=== PATIENT | male | born 1960 | race Caucasian/White ===

== ENCOUNTER 2016-03-26 12:46 | Emergency (ER) | payer OTHER ==
[2016-03-26 13:07] VITALS: BP 164/86; PULSE 98; RESP 16; TEMP 98.2; O2SAT 96
--- NOTE | 2016-03-26 14:09 | UCPHY ---
H & P Time Seen by Provider: 03/26/16 14:08 Patient Type: Established HPI/ROS: Chief complaint. Cough HPI. 56-year-old male presents with cough for 4 days. He also has sore throat. Irritated sensation is throat that makes him cough. No fever. No shortness of breath or chest discomfort. Cough is generally nonproductive. No known exposures. ROS Constitutional. no fever/chills, no weakness Eyes. no problems with vision ENT. Sore throat Cardiovascular. no chest pain Respiratory. Cough Abdominal. no abdominal pain, no nausea/vomiting, no diarrhea . no problems urinating MS. no calf pain/swelling, no neck/back pain, no joint pain Skin. no rash Lymph. no swollen glands Neuro. no headache, no dizziness, no difficulty walking or with speech Past Medical/Surgical History: Hypertension, kidney stone, carpal tunnel repair Social History: , nonsmoker, no alcohol Physical Exam: General Appearance: Alert well-developed male mild distress vital signs stable Eyes: Pupils equal and round no pallor or injection. ENT, tympanic membranes are normal. Pharynx injected with no exudate. Mucous membranes are moist Respiratory: There are no retractions, lungs are clear to auscultation. Cardiovascular: Regular rate and rhythm. Gastrointestinal: Abdomen is soft and nontender, no masses, bowel sounds normal. Neurological: Awake and alert, sensory and motor exams grossly normal. Skin: Warm and dry, no rashes. Musculoskeletal: Neck is supple nontender. Extremities symmetrical, full range of motion. Psychiatric: Patient is oriented X 3, there is no agitation. Constitutional: Initial Vital Signs Temperature (C) 36.8 C 03/26/16 13:04 Heart Rate 98 03/26/16 13:04 Respiratory Rate 16 03/26/16 13:04 Blood Pressure 164/86 H 03/26/16 13:04 O2 Sat (%) 96 03/26/16 13:04 O2 Delivery Mode Room Air Allergies/Adverse Reactions: No Known Allergies Allergy (Verified 03/26/16 13:07) Home Medications: Medication Instructions Recorded Metoprolol Succinate 50 mg PO 04/03/10 Benzonatate [Tessalon Pearles (RX)] 200 mg PO TID PRN #14 cap 03/26/16 Medical Decision Making ED Course/Re-evaluation: Patient remains stable He and I discussed treatment plan including criteria for return importance of follow-up and further evaluation. He expresses understanding and agreement Differential Diagnosis: I think this is likely viral syndrome. I considered strep pharyngitis, influenza, bronchitis, pneumonia - Data Points Medications Given: Discontinued Medications Dexamethasone (Decadron) 8 mg PO EDNOW ONE Stop: 03/26/16 14:17 Last Admin: 03/26/16 14:24 Dose: 8 mg Departure - Departure Disposition: Home, Routine, Self-Care Clinical Impression: Upper respiratory infection Qualifiers: URI type: unspecified URI Qualifier Code: (J06.9) Acute upper respiratory infection, unspecified Condition: Good Instructions: Upper Respiratory Infection (ED) Additional Instructions: Drink plenty of fluids and stay hydrated. Tylenol and Advil for achiness or fever. Tessalon Perles for cough. Return for worsening symptoms. Recheck in 2 -3 days if not improving Referrals: TAYLOR FERNANDEZ [Primary Care Provider] - 2-3 days, if not improved Prescriptions: Benzonatate [Tessalon Pearles (RX)] 200 mg PO TID PRN #14 cap PRN Reason: Cough, Moderate - PQRS PQRS Measurement: 134: Depression screening and followup, PRIME MD-PHQ2 (12 years and older) Over the last 2 weeks, how often have you been bothered by any of the following problems? 1. Feeling down, depressed, or hopeless? 2. Little interest or pleasure in doing things? Patient answered no to both 1 and 2 130: Documentation of medications. Reviewed all patient medications, doses, route and frequency. 226: Do you smoke? No.
[2016-03-26] MEDS ORDERED: DEXAMETHASONE 4 MG TAB PO ONE (14:16)
== END 2016-03-26 14:34 | disposition home or self-care (01) ==
LOC: CED 12:46
DX: J06.9 Acute upper respiratory infection, unspecified (principal)
CPT/HCPCS: 99214-PO; G0463-PO

== ENCOUNTER 2016-03-29 15:06 | Emergency (ER) | payer OTHER ==
[2016-03-29 15:36] VITALS: BP 142/84; PULSE 94; RESP 18; TEMP 97.9; O2SAT 94
--- NOTE | 2016-03-29 17:08 | UCPHY ---
H & P Patient Type: Established Smoking Status: Never smoked Time Seen by Provider: 03/29/16 17:05 HPI/ROS: HPI: 56-year-old male presents to urgent care for recheck of URI symptoms. Overall his symptoms have improved. Reports ongoing nasal congestion, nonproductive cough, mild sore throat. Denies fever, chills, dysphagia, shortness of breath, chest pain, nausea or vomiting. No history of asthma or pneumonia. Was evaluated in the urgent care 3 days ago. Reports overall improvement of symptoms however his cough is prevented him from sleeping at night which is why he comes to urgent care for recheck. ROS:10 point review of systems is negative other than as stated in HPI (Tete Nieves) Past Medical/Surgical History: Denies (Tete Nieves) Social History: , nonsmoker (Tete Nieves) Physical Exam: Vital signs stable, reviewed by me General: Awake, alert, calm, cooperative. No acute distress. Head: Atraumatic. EENT: Conjuctiva mildly injected. TMs intact, without redness or bulging. Nasal mucosa is erythematous with moderate clear discharge. Pharynx mildly erythematous. Uvula midline. No tonsillar abscess or exudates. No frontal or maxillary tenderness to percussion. Respiratory: Breathing unlabored. Lungs clear to auscultation bilaterally. No adventitious sounds CV: Heart rate regular. S1-S2 present. No murmur. GI: Abdomen soft, nontender. Bowel sounds positive x4 quadrants. : Deferred Skin: Warm, dry, intact. No rashes present. Capillary refill brisk. Musculoskeletal: Full ROM all extremities. Neuro: Alert oriented x3. Strength equal in all 4 extremities. (Tete Nieves) Constitutional: Initial Vital Signs Temperature (C) 36.6 C 03/29/16 15:32 Heart Rate 94 03/29/16 15:32 Respiratory Rate 18 03/29/16 15:32 Blood Pressure 142/84 H 03/29/16 15:32 O2 Sat (%) 94 03/29/16 15:32 O2 Delivery Mode Room Air Allergies/Adverse Reactions: No Known Allergies Allergy (Verified 03/26/16 13:07) Home Medications: Medication Instructions Recorded Metoprolol Succinate 50 mg PO 04/03/10 Benzonatate [Tessalon Pearles (RX)] 200 mg PO TID PRN #14 cap 03/26/16 HYDROcodone/HOMATROPINE HYCODA 5 - 10 ml PO HS PRN #60 ml 03/29/16 [Hycodan Syrup (*)] Medical Decision Making ED Course/Re-evaluation: Nontoxic afebrile 56-year-old male presents to urgent care because he is still coughing at night prevented him from sleep. Overall his symptoms have improved. Lungs are clear to auscultation bilaterally. Will prescribe Hycodan for bedtime. Rapid strep negative. (Tete Nieves) Differential Diagnosis: Viral URI, sinusitis, influenza, bronchitis, pneumonia, RAD (Tete Nieves) Other Provider: The patient was evaluated and managed by the nurse practitioner, Tete Nieves. My co-signature indicates that I have reviewed this chart and I agree with the findings and plan of care as documented. I am the secondary supervising physician. (Temitope Ordonez) - Data Points Laboratory Results: 03/29/16 03/29/16 Unknown 17:00 Group A Strep Screen NEGATIVE (NEGATIVE) Group A Strep DNA Pending Departure - Departure Disposition: Home, Routine, Self-Care Clinical Impression: Viral upper respiratory infection Condition: Good Instructions: Upper Respiratory Infection (ED) Additional Instructions: Plan: Rapid strep is negative Drink plenty of fluids. Rest. You may use over the counter cough and cold medicine for symptom relief. You may use Tylenol or Ibuprofen for fever and pain control. Use saline spray or saline irrigation to each nostril twice daily-morning and evening. For sore throat, gargle with warm salt water three times daily. Return to Urgent Care or ER if you develop chest pain, difficulty breathing, or difficulty swallowing. Follow up with primary care for recheck on Sunday at the latest--tell the office you are an "ER follow up appointment when you call. Return here promptly for worsening symptoms such as facial/tooth pain, chest pain, shortness of breath, unremitting fever, nausea, vomiting, difficulty swallowing. Referrals: TAYLOR FERNANDEZ [Primary Care Provider] - As per Instructions Prescriptions: HYDROcodone/HOMATROPINE HYCODA [Hycodan Syrup (*)] 5 - 10 ml PO HS PRN #60 ml PRN Reason: severe cough preventing sleep - PQRS PQRS Measurement: Not applicable (Tete Nieves)
== END 2016-03-29 17:41 | disposition home or self-care (01) ==
LOC: CED 15:06
DX: J06.9 Acute upper respiratory infection, unspecified (principal)
CPT/HCPCS: 87880-PO; 99214-PO; G0463-PO

== ENCOUNTER → 2017-08-28 | Outpatient (CLI) | payer OTHER | LOC: FIMAGING 08:16 | PROVIDERS: ATTEND Internal Medicine Gastroenterology | DX: R14.0 Abdominal distension (gaseous) (principal) | CPT/HCPCS: 78264; A9541 ==